=== PATIENT | male | born 1985 | race Caucasian/White ===

== ENCOUNTER → 2016-08-20 | Outpatient (CLI) | payer BC ==
--- NOTE | 2016-08-20 17:39 | Diagnostic Imaging Report ---
INDICATION: Right shoulder pain. AP, oblique, and transscapular and transaxillary views of the right shoulder are obtained. FINDINGS: No fracture or dislocation is seen. There is no significant degenerative change. Glenohumeral joint and AC joint appear unremarkable. IMPRESSION: Negative right shoulder. Dictated by: Dictated on workstation # [id number]
--- NOTE | 2016-08-20 17:46 | Diagnostic Imaging Report ---
INDICATION: Injury to right knee. TECHNIQUE: AP and lateral views of the right knee are obtained. FINDINGS: No fracture or acute bony abnormality is seen. Joint spaces are unremarkable. There is no overt joint effusion. IMPRESSION: Negative right knee. Dictated by: Dictated on workstation # [id number]
== END ==
LOC: RAD 16:46
PROVIDERS: ATTEND Family Medicine
DX: M19.011 Primary osteoarthritis, right shoulder (principal); M17.11 Unilateral primary osteoarthritis, right knee
CPT/HCPCS: 73030; 73560

== ENCOUNTER → 2016-09-11 | Outpatient (CLI) | payer BC ==
--- NOTE | 2016-09-11 08:48 | Diagnostic Imaging Report ---
INDICATION: Pre MRI screening for orbital radiopaque foreign body. 2 views were obtained. FINDINGS: Single view of the orbits was obtained which demonstrated no evidence for radiopaque foreign body or other significant finding. IMPRESSION: 1. Negative for orbital radiopaque foreign body. 2. Chronic right maxillary sinusitis is present. Dictated by: Dictated on workstation # [id number]
--- NOTE | 2016-09-11 11:51 | Diagnostic Imaging Report ---
PROCEDURE: MRI right joint upper extremity without contrast. TECHNIQUE: Multiplanar, multisequence non contrast-enhanced MRI of the shoulder was performed. AVAILABLE COMPARISONS: None INDICATION: Shoulder pain. History of trauma in the past. FINDINGS: The bicipital tendon is in normal position in the groove. The intracapsular tendon is normal. Acromioclavicular joint does not show any significant abnormality. There is no os acromiale. The inferior glenohumeral ligament is normal. Posterior labrum is normal. The anterior superior labrum shows increased T2 signal that is under surface, probably sublabral recess. The rotator cuff tendon is negative for tear or other significant abnormality. There is no denervation edema or focal muscle atrophy. IMPRESSION: 1. No significant right shoulder abnormality is identified. Dictated by: Dictated on workstation # [id number]
--- NOTE | 2016-09-11 11:57 | Diagnostic Imaging Report ---
PROCEDURE: MRI right joint lower extremity without contrast. TECHNIQUE: Multiplanar, multisequence non contrast-enhanced MRI of the right knee was accomplished. INDICATION: Chronic increasing right knee pain. FINDINGS: The patella is in normal position. Retinacula are normal. The MCL complex is normal. Popliteus tendon, fibular collateral ligament, iliotibial tract, biceps femoris tendons are normal. No bone marrow lesion is identified. The anterior and posterior cruciate ligaments are normal. Patella and quadriceps tendons are normal. Medial and lateral menisci show no evidence for tear. Minimal degenerative signal is seen in the lateral meniscus body and posterior horn. There is no joint effusion. No osteochondral lesion is identified. IMPRESSION: 1. No significant right knee abnormality is identified. Dictated by: Dictated on workstation # [id number]
== END ==
LOC: RAD 07:56
PROVIDERS: ATTEND Family Medicine
DX: S83.231A Complex tear of medial meniscus, current injury, right knee, initial encounter (principal); S43.011A Anterior subluxation of right humerus, initial encounter; Z77.018 Contact with and (suspected) exposure to other hazardous metals; X58.XXXA Exposure to other specified factors, initial encounter
CPT/HCPCS: 70140; 73221; 73721